=== PATIENT | male | born 1945 | race Caucasian/White ===

== ENCOUNTER 2018-12-05 10:11 | Outpatient (CLI) | payer MEDICARE ==
[~2018-12-05 10:11] MED LIST: APIX5TAB PO; ASPI81TA45 PO; ATOR40TA78 PO; INSU100I28 SQ-INSULIN; INSU100V SQ; ISOS30TA8 PO; METO25TA35 PO; POLY17PO5 PO; WHEA236P PO
== END 2018-12-05 23:59 | disposition home or self-care (01) ==
LOC: RAD 10:11
PROVIDERS: ATTEND Internal Medicine Gastroenterology
DX: R10.11 Right upper quadrant pain (principal); E11.9 Type 2 diabetes mellitus without complications; K21.9 Gastro-esophageal reflux disease without esophagitis; I25.2 Old myocardial infarction; F41.9 Anxiety disorder, unspecified; Z86.73 Personal history of transient ischemic attack (TIA), and cerebral infarction without residual deficits
CPT/HCPCS: 78264; A9541

== ENCOUNTER → 2020-09-23 | Outpatient (CLI) | payer MEDICARE ==
[~2020-09-23] MED LIST changes: +GABAPENTIN PO; +METOPROLOL PO; +PANT40TA6 PO; +RAPATHA
== END | disposition home or self-care (01) ==
LOC: CVU 15:21
PROVIDERS: ATTEND Registered Nurse
DX: I08.8 Other rheumatic multiple valve diseases (principal); E11.9 Type 2 diabetes mellitus without complications; I11.9 Hypertensive heart disease without heart failure; I25.10 Atherosclerotic heart disease of native coronary artery without angina pectoris; I65.23 Occlusion and stenosis of bilateral carotid arteries; Z95.4 Presence of other heart-valve replacement
CPT/HCPCS: 93306; 93880

== ENCOUNTER 2020-11-29 07:01 | Inpatient (IN) | payer MEDICARE ==
[~2020-11-29] VITALS: Ht 182.9 cm; Wt 84.6 kg
--- NOTE | 2020-11-29 07:19 | NUR ---
PT BIB EMS FOR DIZZINESS STARTING THIS AM. WEAKNESS, PT UNABLE TO STAND OUT OF BED. PT STATES HE IS SPINNING. SLIGHT SOB. DENIES CP. NEURO INTACT. ABLE TO MOVE ALL EXTREMITIES. BS 140 BY EMS. PT HR 50-60 W L BUNDLE. EKG DONE ON ARRIVAL. PT CARDIAC MONITORED
[2020-11-29 08:16] LABS: BASOPHILS % (AUTO) 1 % (0-1); EOSINOPHILS % (AUTO) 2 % (1-7); LYMPHOCYTES % (AUTO) 20 % (22-44); MEAN CORPUSCULAR HEMOGLOBIN 29.4 pg (27.5-34.5); MEAN CORPUSCULAR HGB CONC 33.7 g/dL (33.2-36.2); MEAN PLATELET VOLUME 8.3 fL (7.4-10.4); MONOCYTES % (AUTO) 6 % (2-9); NEUTROPHILS % (AUTO) 71 % (42-75); PLATELET COUNT 167 x10^3/uL (130-400); RED BLOOD COUNT 3.49 x10^6/uL (4.38-5.82); RED CELL DISTRIBUTION WIDTH 19.6 % (9.4-14.8)
[2020-11-29 08:23] LABS: ALANINE AMINOTRANSFERASE 24 U/L (12-78); ALBUMIN 3.8 g/dL (3.4-5.0); ANION GAP 4 mmol/L (5-15); CALCIUM 8.8 mg/dL (8.5-10.1); CHLORIDE 111 mmol/L (98-107); CREATININE 1.16 mg/dL (0.7-1.3)
[2020-11-29 08:25] LABS: ALKALINE PHOSPHATASE 105 U/L (45-117); BILIRUBIN,TOTAL 0.8 mg/dL (0.2-1.0); TOTAL PROTEIN 6.6 g/dL (6.4-8.2)
--- NOTE | 2020-11-29 08:58 | NUR ---
ASSISTED PT TO STAND TO VOID. PT STATES HE IS TOO DIZZY. VSS. POC TO BE ADMITTED.
[2020-11-29] MEDS ORDERED: SODIUM CHLORIDE 0.9%, 500ML IVBOLUS ONE (09:00)
[2020-11-29 09:10] LABS: ANISOCYTOSIS 1+; POLYCHROMASIA 1+
[2020-11-29 09:11] LABS: OVALOCYTES 1+; SCHISTOCYTES 1+
[2020-11-29 09:13] LABS: <PLATELET ESTIMATE> ADEQUATE; LARGE PLATELETS 1+
--- NOTE | 2020-11-29 09:47 | NUR ---
GIVEN BREAKFAST TRAY. BLOOD SUGAR 130
--- NOTE | 2020-11-29 11:36 | NUR ---
REPORT TO EDITH
[2020-11-29] MEDS ORDERED: ONDANSETRON 2MG/ML, 2ML IVPush PRN (12:00)
[2020-11-29] MEDS ORDERED: POLYETHYLENE GLYCOL 17 GM PACKET PO PRN (12:00)
[2020-11-29] MEDS ORDERED: SENNA/DOCUSATE TABLET PO PRN (12:00)
[2020-11-29] MEDS ORDERED: ACETAMINOPHEN 325 MG TABLET PO PRN (12:00)
[2020-11-29] MEDS ORDERED: LACTATED RINGERS 1,000 ML IV SCH (12:00)
[2020-11-29] MEDS ORDERED: ONDANSETRON ODT 4 MG PO PRN (12:00)
[2020-11-29 12:13] VITALS: BP 117/69
[2020-11-29] MEDS: HEPARIN 5,000 UNITS/ML, 1ML SQ SCH ×2 (12:33→20:34)
[2020-11-29] MEDS: INSULIN LISPRO 100 UNITS/ML, PEN SQ-INSULIN SCH ×2 (16:00→22:03)
[2020-11-29 20:07] VITALS: BP 146/73
[2020-11-29] MEDS ORDERED: FINA5TAB4 PO (20:26)
[2020-11-29] MEDS ORDERED: TAMS-11 PO (20:26)
[2020-11-29] MEDS: GABAPENTIN 300 MG CAPSULE PO SCH (20:34)
[2020-11-29] MEDS ORDERED: INSULIN GLARGINE 100 UNITS/ML, PEN SQ-INSULIN SCH (21:00)
[2020-11-29] MEDS ORDERED: ATORVASTATIN 80 MG TABLET PO SCH (21:00)
[2020-11-30 01:34] VITALS: BP 144/73
[2020-11-30] MEDS: HEPARIN 5,000 UNITS/ML, 1ML SQ SCH (04:27)
[2020-11-30 05:36] LABS: MEAN CORPUSCULAR HEMOGLOBIN 29.6 pg (27.5-34.5); MEAN CORPUSCULAR HGB CONC 34.2 g/dL (33.2-36.2); MEAN PLATELET VOLUME 8.4 fL (7.4-10.4); PLATELET COUNT 168 x10^3/uL (130-400); RED BLOOD COUNT 3.42 x10^6/uL (4.38-5.82); RED CELL DISTRIBUTION WIDTH 19.7 % (9.4-14.8)
[2020-11-30 05:45] LABS: ALANINE AMINOTRANSFERASE 20 U/L (12-78); ALBUMIN 3.6 g/dL (3.4-5.0); ANION GAP 6 mmol/L (5-15); CALCIUM 8.5 mg/dL (8.5-10.1); CHLORIDE 110 mmol/L (98-107); CREATININE 0.98 mg/dL (0.7-1.3)
[2020-11-30 05:47] LABS: ALKALINE PHOSPHATASE 94 U/L (45-117); BILIRUBIN,TOTAL 0.7 mg/dL (0.2-1.0); TOTAL PROTEIN 6.2 g/dL (6.4-8.2)
[2020-11-30] MEDS ORDERED: ASPIRIN 81 MG TABLET EC PO SCH (06:00)
[2020-11-30 06:30] LABS: BAND#(MANUAL) 0.19 x10^3/uL; BANDS%(MANUAL) 3 % (0-7); LYMPHS% (MANUAL) 21 % (22-44); METAMYELOCYTES# (MANUAL) 0.19 x10^3/uL (0-0); METAMYELOCYTES% (MANUAL) 3 % (0-1); MONOS#(MANUAL) 0.37 x10^3/uL (0.3-2.7); MONOS% (MANUAL) 6 % (2-9); SEG#(MANUAL) 4.15 x10^3/uL (1.8-6.8); SEGS% (MANUAL) 67 % (42-75)
[2020-11-30 06:31] LABS: ANISOCYTOSIS 1+; OVALOCYTES 1+; POLYCHROMASIA 1+
[2020-11-30 06:32] LABS: TEAR DROPS 1+
[2020-11-30 06:33] LABS: <PLATELET ESTIMATE> ADEQUATE; LARGE PLATELETS 1+
[2020-11-30] MEDS: INSULIN LISPRO 100 UNITS/ML, PEN SQ-INSULIN SCH (07:00)
[2020-11-30 07:14] VITALS: BP 131/84
[2020-11-30] MEDS: GABAPENTIN 300 MG CAPSULE PO SCH (07:37)
[2020-11-30] MEDS ORDERED: PANTOPRAZOLE 40MG TABLET PO SCH (09:00)
[2020-11-30] MEDS ORDERED: METOPROLOL SUCCINATE 50 MG TAB.ER.24H PO SCH (09:00)
== END 2020-11-30 11:12 | disposition home or self-care (01) | DRG 307 ==
LOC: ED 10:41 → EDIP 10:46 → 4EST 11:59 → DCLOUNGE 11-30 11:05
PROVIDERS: ADMIT Internal Medicine; ATTEND Family Medicine
DX: I35.0 Nonrheumatic aortic (valve) stenosis (principal); R55 Syncope and collapse; D64.9 Anemia, unspecified; E11.9 Type 2 diabetes mellitus without complications; E78.5 Hyperlipidemia, unspecified; I10 Essential (primary) hypertension; I25.10 Atherosclerotic heart disease of native coronary artery without angina pectoris; Z96.41 Presence of insulin pump (external) (internal); I48.0 Paroxysmal atrial fibrillation; I69.311 Memory deficit following cerebral infarction; Z79.4 Long term (current) use of insulin; Z87.891 Personal history of nicotine dependence; Z91.81 History of falling; Z95.2 Presence of prosthetic heart valve; Z95.5 Presence of coronary angioplasty implant and graft; Z83.3 Family history of diabetes mellitus; Z90.49 Acquired absence of other specified parts of digestive tract; Z79.82 Long term (current) use of aspirin
CPT/HCPCS: 36415; 70551; 71045; 80053; 82962; 83036; 85025; 93005; 93306; 96360; 96361; 99285; G0378; J1644; J1815; J7040; J7120

== ENCOUNTER 2020-12-04 07:18 | Day surgery (SDC) | payer MEDICARE ==
[~2020-12-04 07:18] MED LIST changes: +FINA5TAB4 PO; +TAMS-11 PO
[2020-12-04] MEDS ORDERED: SODIUM CHLORIDE 0.9% 1,000 ML IV ONE (07:30)
[2020-12-04] MEDS ORDERED: PROPOFOL 10 MG/ML, 20ML ONE (09:20)
== END 2020-12-04 09:50 | disposition home or self-care (01) ==
LOC: CACL 07:18
PROVIDERS: ATTEND Internal Medicine Cardiovascular Disease
DX: I48.0 Paroxysmal atrial fibrillation (principal); I07.1 Rheumatic tricuspid insufficiency; I25.10 Atherosclerotic heart disease of native coronary artery without angina pectoris; E78.2 Mixed hyperlipidemia; E11.9 Type 2 diabetes mellitus without complications; Z79.01 Long term (current) use of anticoagulants; Z79.4 Long term (current) use of insulin; Z79.82 Long term (current) use of aspirin; Z79.899 Other long term (current) drug therapy; Z86.73 Personal history of transient ischemic attack (TIA), and cerebral infarction without residual deficits; Z95.2 Presence of prosthetic heart valve
CPT/HCPCS: 87635; 93312; 93325; J2704